=== PATIENT | male | born 1980 | race Caucasian/White ===

== ENCOUNTER 2020-10-12 08:49 | Emergency (ER) | payer BC ==
[~2020-10-12] VITALS: Ht 177.8 cm; Wt 99.8 kg
[2020-10-12 08:59] VITALS: BP_SYST 139
[2020-10-12] MEDS ORDERED: NACL 0.9% 1,000 ML IV ONE (09:30)
[2020-10-12 09:46] LABS: EOSINOPHILS # (AUTO) 0.2 K/uL (0.0-0.4); LYMPHOCYTES # (AUTO) 2.4 K/uL (1.0-5.5); LYMPHOCYTES % (AUTO) 40.4 % (20.5-51.5); MONOCYTES # (AUTO) 0.4 K/uL (0.0-1.0); MONOCYTES % (AUTO) 6.9 % (1.7-9.3); NEUTROPHILS # (AUTO) 2.9 K/uL (1.8-7.7); NEUTROPHILS % (AUTO) 48.9 % (40.0-70.0)
[2020-10-12 09:48] LABS: BASOPHILS # (AUTO) 0.1 K/uL (0.0-0.2); BASOPHILS % (AUTO) 0.9 % (0.0-2.0); EOSINOPHILS % (AUTO) 2.9 % (0.0-4.0); HEMATOCRIT 43.5 % (36-54); HEMOGLOBIN 14.6 g/dL (14.0-18.0); MEAN CORPUSCULAR HEMOGLOBIN 30 pg (27-31); MEAN CORPUSCULAR HGB CONC 34 % (32-36); MEAN CORPUSCULAR VOLUME 88 fL (79.0-98.0); PLATELET COUNT (AUTO) 162 K/uL (130-430); RED BLOOD CELL COUNT(AUTO) 4.93 MIL/uL (4.2-6.2)
[2020-10-12 10:05] LABS: CALCIUM 8.5 mg/dL (8.4-11.0); CREATININE 0.98 mg/dL (0.55-1.30); POTASSIUM 4.5 mmol/L (3.5-5.1)
[2020-10-12 10:06] LABS: BILIRUBIN,URINE NEGATIVE (NEGATIVE); BLOOD, URINE NEGATIVE (NEGATIVE); CLARITY/URINE CLEAR (CLEAR); GLUCOSE,URINE NEGATIVE (NEGATIVE); KETONES,URINE NEGATIVE (NEGATIVE); LEUKOCYTE ESTERASE ,URINE NEGATIVE (NEGATIVE); NITRITE, URINE NEGATIVE (NEGATIVE); PROTEIN URINE NEGATIVE (NEGATIVE); UROBILINOGEN,URINE 0.2 (0.2-1.0)
[2020-10-12 10:07] LABS: COLOR,URINE YELLOW (YELLOW)
[2020-10-12 10:11] LABS: ALBUMIN 3.8 g/dL (3.4-4.8); TOTAL BILIRUBIN 0.4 mg/dL (0.0-1.0)
[2020-10-12 12:06] VITALS: BP_SYST 122
== END 2020-10-12 12:10 | disposition home or self-care (01) ==
LOC: SED 08:49
DX: K64.9 Unspecified hemorrhoids (principal)
CPT/HCPCS: 36415; 71045; 80053; 81003; 82272; 85025; 85610; 85730; 86886; 86900; 86901; 93005; 96360; 99285; J7030